=== PATIENT | female | born 1935 | race Caucasian/White ===

== ENCOUNTER 2017-02-02 08:48 | Day surgery (SDC) | payer OTHER ==
[2017-02-02] MEDS ORDERED: PROPOFOL 20 ML ONE ×2 (10:42)
[2017-02-02 11:03] VITALS: BMI 35.4
[2017-02-02] MEDS ORDERED: LIDOCAINE HCL 2% JELLY 10 ML CARTRIDGE ONE (11:33)
[2017-02-02 11:55] VITALS: TEMP 97.9
[2017-02-02] MEDS ORDERED: ACETAMINOPHEN 1000 MG/100 ML VIAL (NON FORMULARY) IVPB ONE (12:01)
[2017-02-02] MEDS ORDERED: traMADol HCL 50 MG TABLET PO ONE (12:03)
[2017-02-02 13:19] VITALS: BP 168/75; PULSE 54
--- NOTE | 2017-02-03 12:35 | PATH ---
Surgical Pathology Report Patient Name: [facility]. Rec. #: [id number] /Age/Gender: 1935 (Age: 81) / F Account: [id number] Location: U-ENDOSCOPY Taken: 02/02/2017 Received: 02/02/2017 Reported: 02/03/2017 Physicians: Nura Montiel M.D. Specimen(s) Received A: BX ANTRUM B: BX PROCTITIS Clinical History GERD, history of gastric ulcer, fourth degree hemorrhoids Erosive gastritis, hiatal hernia, grade 4 internal hemorrhoids, proctitis Final Diagnosis A. STOMACH, ANTRUM, BIOPSY: REACTIVE GASTROPATHY. IMMUNOSTAIN FOR H. PYLORI IS NEGATIVE. B. RECTUM, BIOPSY: COLONIC MUCOSA WITH FOCAL SUPERFICIAL ULCERATION. NO CARCINOMA OR ADENOMATOUS CHANGES IDENTIFIED. Electronically Signed Jj Webster M.D. Gross Description A. Received in formalin, labeled "biopsy antrum" is a farias, irregular portion of soft tissue measuring 0.3 cm. in greatest dimension. The specimen is submitted in toto in one cassette. B. Received in formalin, labeled "biopsy proctitis" is a farias, irregular portion of soft tissue measuring 0.3 cm. in greatest dimension. The specimen is submitted in toto in one cassette. 02/02/201702/02/2017
== END 2017-02-02 13:40 | disposition home or self-care (01) ==
LOC: JASU-ENDO 08:48
PROVIDERS: ATTEND Internal Medicine Gastroenterology
PROC: 0DBP8ZX Excision of Rectum, Via Natural or Artificial Opening Endoscopic, Diagnostic (ICD-10-PCS; 2017-02-02)
PROC: 0DB68ZX Excision of Stomach, Via Natural or Artificial Opening Endoscopic, Diagnostic (ICD-10-PCS; 2017-02-02)
PROC: 06LY4CC Occlusion of Hemorrhoidal Plexus with Extraluminal Device, Percutaneous Endoscopic Approach (ICD-10-PCS; principal; 2017-02-02 10:00)
DX: K64.3 Fourth degree hemorrhoids (principal); R23.3 Spontaneous ecchymoses; K29.71 Gastritis, unspecified, with bleeding; K44.9 Diaphragmatic hernia without obstruction or gangrene; Z87.11 Personal history of peptic ulcer disease
CPT/HCPCS: 88305-TC; 88342-TC

== ENCOUNTER 2017-03-11 09:01 | Inpatient (IN) | payer OTHER ==
[2017-03-11 09:10] VITALS: TEMP 97.8; BMI 35.4
[2017-03-11 09:46] LABS: BASOPHIL 1.1 % (0-2.0); EOSINOPHIL 1.2 % (0-4.5); MCH 28.4 pg (25.7-33.7); MCHC 32.9 g/dl (32.0-36.0); MEAN CELL VOLUME 86.3 fl (80-96); NEUTROPHILS 42.3 % (42.8-82.8); PLATELET COUNT 305 K/MM3 (134-434); WHITE BLOOD COUNT 14.4 K/mm3 (4.0-10.0)
--- NOTE | 2017-03-11 09:49 | PDOC ---
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 She states she was having the stress test because she had been complaining of dyspnea on exertion, intermittent chest pain, diaphoresis and irregular heart beat for 2 months. The patient denies any chest pain or lightheadedness this week. She states she feels comfortable at this time. She denies starting any new medications in the past 3 months. She denies shortness of breath, headache and dizziness. She denies fever, chills , nausea, vomit, diarrhea and constipation. She denies dysuria, frequency, urgency and hematuria. Allergies: NKDA PCP - Dr. Aden Clam Grower: Dr. Venegas Oncologist: Dr. Muller (Liyah Vazquez) Past History <Liyah Vazquez - Last Filed: 03/11/17 11:27> - Past Medical History Anemia: No Asthma: No Cancer: Yes (CHRONIC LEUKEMIA) Cardiac Disorders: Yes (CAD) CVA: No COPD: No CHF: No Dementia: No Diabetes: No GI Disorders: Yes (REFLUX,ESOPHAGITIS;GASTRIC ULCERS; DIVERTICULOSIS; H/H) Disorders: No HTN: Yes Hypercholesterolemia: Yes Liver Disease: No Seizures: No Thyroid Disease: No - Surgical History Abdominal Surgery: No Appendectomy: No Cardiac Surgery: No Cholecystectomy: Yes Lung Surgery: No Neurologic Surgery: No Orthopedic Surgery: Yes (LEFT TOTAL KNEE REPLACEMENT X2) - Immunization History Immunization Up to Date: Yes - Psycho/Social/Smoking Cessation Hx Anxiety: No Suicidal Ideation: No Smoking Status: No Smoking History: Never smoked Have you smoked in the past 12 months: No Number of Cigarettes Smoked Daily: 0 If you are a former smoker, when did you quit?: 1997 Hx Alcohol Use: No Drug/Substance Use Hx: No Substance Use Type: None Hx Substance Use Treatment: No <Geovany Burgess - Last Filed: 03/11/17 18:42> - Past Medical History Allergies/Adverse Reactions: Allergies Allergy/AdvReac Type Severity Reaction Status Date / Time codeine [Codeine] Allergy Mild itchiness Verified 03/11/17 09:09 morphine Allergy Verified 03/11/17 09:09 Home Medications: Ambulatory Orders Amlodipine Besylate/Benazepril [Lotrel 5-10 mg Capsule] 1 each PO DAILY Aspirin [ASA -] 162 mg PO BID 12/02/13 Isosorbide Mononitrate [Imdur] 120 mg PO DAILY 12/02/13 Metoprolol Tartrate [Lopressor -] 25 mg PO DAILY 12/02/13 Atorvastatin Ca [Lipitor] 20 mg PO HS 04/15/15 Cholecalciferol (Vitamin D3) [Vitamin D3] 2,000 unit PO DAILY 04/15/15 Sertraline HCl [Zoloft -] 25 mg PO DAILY 04/15/15 Guar Gum [Benefiber] 1 each PO BID #0 packet 09/28/15 Acetaminophen [Tylenol -] 500 mg PO Q4H PRN #100 tablet 02/02/17 Docusate Sodium [Colace -] 2 tab PO DAILY #30 capsule 02/02/17 Pantoprazole Sodium 40 mg PO DAILY 03/11/17 Cardiac Specific PMH - Complaint Specific PMHX Pacemaker: No <Geovany Burgess - Last Filed: 03/11/17 18:42> Review of Systems - Review of Systems Able to Perform ROS?: Yes <Liyah Vazquez - Last Filed: 03/11/17 11:27> <Geovany Burgess - Last Filed: 03/11/17 18:42> - Review of Systems Comments:: 03/11/17 11:27 CONSTITUTIONAL: No reported: Fever, Chills, Diaphoresis, Generalized Weakness, Malaise, Loss of Appetite HEENT: No reported: Rhinorrhea, Nasal Congestion, Throat Pain, Throat Swelling, Difficulty Swallowing, Mouth Swelling, Ear Pain, Eye Pain, Visual Changes CARDIOVASCULAR: (+) Irregular Heart Rate, No reported: Chest Pain, Syncope, Palpitations, Lightheadedness, Peripheral Edema RESPIRATORY: No reported: Cough, Shortness of Breath, SOB with Exertion, Orthopnea, Wheezing , Stridor, Hemoptysis GASTROINTESTINAL: No reported: Abdominal pain, Abdominal Distension, Nausea, Vomiting, Diarrhea, Constipation, Melena, Hematochezia GENITOURINARY: No reported: Dysuria, Frequency, Urgency, Hesitancy, Flank Pain, Genital Pain MUSCULOSKELETAL: No reported: Myalgia, Arthralgia, Joint Swelling, Back pain, Neck Pain SKIN: No reported: Rash, Itching, Pallor HEMEATOLOGIC/IMMUNOLOGIC: No reported: Easy Bleeding, Easy Bruising, Lymphadenopathy, Frequent infections ENDOCRINE: No reported: Unexplained Weight Gain, Unexplained Weight Loss, Heat Intolerance , Cold Intolerance NEUROLOGIC: No reported: Headache, Focal Weakness, Paresthesias, Vertigo, Lightheadedness, Unsteady Gait, Seizure, Mental Status Changes, Incontinence PSYCHIATRIC: No reported: Anxiety, Depression (Liyah Vazquez) *Physical Exam <Liyah Vazquez - Last Filed: 03/11/17 11:27> <Geovany Burgess - Last Filed: 03/11/17 18:42> - Vital Signs Last Vital Signs Temp Pulse Resp BP Pulse Ox 97.8 F 52 L 18 105/77 97 03/11/17 09:03 03/11/17 15:37 03/11/17 15:37 03/11/17 15:37 03/11/17 15:37 - Physical Exam Comments: 03/11/17 11:28 GENERAL: The patient is awake, alert, and fully oriented, Nontoxic - in no acute distress. HEAD: Normocephalic, atraumatic. EYES: extraocular movements intact, sclera anicteric, conjunctiva clear. ENT: Normal voice, Moist mucous membranes. NECK: Normal range of motion, supple LUNGS: Breath sounds equal, clear to auscultation bilaterally. No wheezes, no rhonchi, no rales. HEART: (+) bradycardic, regular, without murmur, rub or gallop. ABDOMEN: Soft, nontender, normoactive bowel sounds. No guarding, no rebound.No CVA tenderness EXTREMITIES: Normal range of motion, no edema. No clubbing or cyanosis. No cords, erythema, or tenderness. NEUROLOGICAL: No facial assymetry, Normal speech, PSYCH: Normal mood, normal affect. SKIN: Warm, Dry, normal turgor, (Liyah Vazquez) Heart Score/ECG Review <Liyah Vazquez - Last Filed: 03/11/17 11:27> <Geovany Burgess - Last Filed: 03/11/17 18:42> - ECG Impressions Comment:: 03/11/17 10:13 Twelve-lead EKG was performed and reviewed by me. Rate of 40 Junctional bradycardia TWI in lateral leasd previous ekg dated 01/13/17 shows sinus bradycardia without TWI 03/11/17 18:10 Twelve-lead EKG was performed and reviewed by me. EKG performed 15:21 There is normal sinus rhythm with a rate of 52 Left axis deviation When compared with prior EKG junctional bradycardia has resolved. (Geovany Burgess) ED Treatment Course - LABORATORY CBC & Chemistry Diagram: 03/11/17 09:21 03/11/17 09:21 <Liyah Vazquez - Last Filed: 03/11/17 11:27> - LABORATORY CBC & Chemistry Diagram: 03/11/17 09:21 03/11/17 09:21 <Geovany Burgess - Last Filed: 03/11/17 18:42> - ADDITIONAL ORDERS Additional order review: Laboratory Results 03/11/17 09:21 Sodium 138 Potassium 4.9 D Chloride 107 Carbon Dioxide 22 Anion Gap 9 BUN 24 H D Creatinine 1.0 D Creat Clearance w eGFR 53.08 Random Glucose 115 H Calcium 9.0 Magnesium 2.5 H D Total Bilirubin 0.6 AST 20 ALT 19 D Alkaline Phosphatase 100 Creatine Kinase 62 Troponin I < 0.02 Total Protein 6.5 Albumin 3.8 TSH 0.87 03/11/17 09:21 RBC 4.89 MCV 86.3 MCHC 32.9 RDW 14.0 MPV 8.0 Neutrophils % 42.3 L Lymphocytes % 47.9 H Monocytes % 7.5 Eosinophils % 1.2 Basophils % 1.1 D - RADIOLOGY Radiology Studies Ordered: Category Date Time Status CHEST X-RAY PORTABLE* [RAD] Stat Radiology 03/11/17 09:15 Completed Radiograph Interpretation: 03/11/17 10:26 CXR was read by Dr. Mancuso at 10:04 Impression: No acute pathology. (MoreLiyah [email or web address]) Medical Decision Making <Liyah Vazquez - Last Filed: 03/11/17 11:27> <Geovany Burgess - Last Filed: 03/11/17 18:42> - Medical Decision Making 03/11/17 10:24 Clam Grower, Dr. Venegas, is at bedside with patient at this time (Liyah Vazquez) 03/11/17 09:46 81y F hx of CAD, HTN, HL, sent from cardiology for evaluation of bradycardia - pt has been having NARAYANAN/sob, intermittent CP (last episode 1 week + ago), noted to be bradycardic to 35 for her outpateint stress test, EKG was junctional bradycardia. pts BP wnl here and pt is otherwise asymptomatic. pt on monitor with pacer pads on stand by will obtain lab work to r/o metabolic, endocrine cause, acs will d/w dr. luther regarding possible PM placement A portion of this note was documented by scribe services under my direction. I have reviewed the details of the note, within reason, and agree with the documentation with the following case summary and management plan written by me 03/11/17 10:59 labs reviewed and are unremarkable case discussed with dr. Nieto and dr. arteaga will admit to icu will d/c betablockers (although she is only on a minimal dose) to see if there is any improvement, if not will need PM placement Case discussed in detail with admitting physician including history, physical exam and ancillary studies. Admitting physician has assumed care for the patient, will follow all pending diagnostics and will complete the evaluation and treatment. CRITICAL CARE DOCUMENTATION: I spent ~35 minutes of Critical Care time, excluding separately billable procedures, involving high complexity decision making to assess, manipulate and support vital system function(s) to treat single or multiple vital organ system failure and/or to prevent further life threatening deterioration of the patient' s condition. 03/11/17 11:[address] christy accepted to ICU 03/11/17 14:31 [address] further discussion with dr. venegas - requests stransfer to [facility] for PM implantation rather than admission. pt will be transferred to Dr. Foster care at [facility] The patient was seen and examined to determine medical stability. The patient is MEDICALLY STABLE at this time. Labs, EKG, radiological studies were ordered to expedite the patient's care. I certify that I have discussed with the patient and/or his in store representative the following risks and benefits of the proposed transfer. Risks include worsening of patients condition during transport,auto accident, or permanent disability. Benefits include receiving specialized care not available at this facility. I certify that, based on the information available at this time, the medical benefits reasonably expected from the provision of appropriate medical treatment at the receiving facility outweigh the increased risk to the patient. I believe the patient/relative/guardian understands what I have explained and answered. The patient will be transferred to the service of Dr. Eubanks at [facility] 03/11/17 14:45 pts HR improved to the 50s, appears to be sinus on repeat ekg pt asypmtmatic otherwise bp normal awating bed at [facility] for transfer (Geovany Burgess) *DC/Admit/Observation/Transfer <Liyah Vazquez - Last Filed: 03/11/17 11:27> - Discharge Dispostion Admit: No - Transfer to Acute Care Facility Receiving Facility: [facility] Accepting Physician:: Dr. Eubanks <Geovany Burgess - Last Filed: 03/11/17 18:42> Diagnosis at time of Disposition: Junctional bradycardia, NARAYANAN (dyspnea on exertion), Sick sinus syndrome - Discharge Dispostion Disposition: TRANSFER ACUTE CARE/OTHER HOSP Condition at time of disposition: Guarded - Referrals - Patient Instructions - Attestations Scribe Attestion: 03/11/17 10:27 Documentation prepared by Liyah Vazquez, acting as medical translator for Geovany Burgess MD, (Liyah Vazquez)
[2017-03-11 10:11] LABS: ALBUMIN 3.8 g/dl (3.4-5.0); ANION GAP 9 (8-16); BILIRUBIN,TOTAL 0.6 mg/dL (0.2-1.0); CO2 22 mmol/L (21-32); COCKROFT - GAULT 62.1095; GLUCOSE,RANDOM 115 mg/dL (74-106); MAGNESIUM 2.5 mg/dL (1.8-2.4); SGOT/AST 20 U/L (15-37); SGPT/ALT 19 U/L (12-78); TOT PROT 6.5 g/dl (6.4-8.2)
[2017-03-11 10:20] LABS: ALK PHOS 100 U/L (45-117); THYROID STIMULATING HORMONE 0.87 uIU/ml (0.358-3.74); TROPONIN I < 0.02 ng/ml (0.00-0.05)
[2017-03-11 11:53] LABS: URINE APPEARANCE CLEAR; URINE BILIRUBIN NEGATIVE (NEGATIVE); URINE BLOOD NEGATIVE (NEGATIVE); URINE COLOR LTYELLOW; URINE GLUCOSE (UA) NEGATIVE (NEGATIVE); URINE KETONE NEGATIVE (NEGATIVE); URINE NITRITE NEGATIVE (NEGATIVE); URINE PROTEIN NEGATIVE (NEGATIVE); URINE UROBILINOGEN NEGATIVE E.U./dl (0.2-1.0)
[2017-03-11 12:00] LABS: URINE LEUK ESTERASE 2+ (NEGATIVE)
[2017-03-11 12:02] LABS: URINE BACTERIA MODERATE /hpf (NONE SEEN); URINE RBC 1 /hpf (0-3); URINE WBC 106 /hpf (3-5)
--- NOTE | 2017-03-11 12:09 | CON.CARD ---
Consult - History of Present Illness History of Present Illness: Chief Complaint: 1. Fatigue 2. Shortness of breath on minimal activity 3. Chest discomfort 81 year old Cynthia female, with history of hypertension, hypertensive cardiovascular disease, coronary artery disease, angina pectoris, chronic lymphocytic leukemia, hypercholesterolemia, benign postural vertigo, history of depression, gastroesophageal reflux disease, s/p upper GI bleeding. History of diverticulosis and rheumatic fever as a child. Patient had been complain of dyspnea dating back to January of this year, initial episode occurred after taking a shower and drying herself and became severely dyspnic, which lasted a few minutes. She also experienced dyspnea while exercising on a stationary bike, she denied having PND or orthopnea. Patient periodically had retrosternal pressure like chest discomfort associated with shortness of breath. Rarely discomforted radiated to the left upper extremity. Patient was scheduled to undergo a pharmacological myoview stress test today and was found to be in a junctional rhythm at 32 bpm with VA conduction. On questioning patient states that she was experiencing profound fatigue for the last several days and had one episode of retrosternal chest discomfort 1 week ago while she was laying in bed, promptly relieved by sub lingual nitroglycerine. In view of the electrocardiographic findings she was sent to the emergency room for further evaluation. No history of presyncope or syncope, no palpitations, no history of cough or expectoration. No history of diabetes mellitus, intolerance to cold or warm weather. Past History: 1. As mentioned in the history of present illness. 2. Arthritis involving the left knee. 3. Vitamin D deficiency. 4. History of osteoporosis. Surgical history: 1. S/P left knee replacement. 2. S/P hysterectomy. 3. S/P cholecystectomy 4. 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 She is , has 4 sons and 1 daughter. One of the sons who was in the army was accidentally shot. All other children are healthy. Non smoker, recreational smoker in her teenage years , has a social drink and 2-3 cups of regular coffee per day. No su. Family history: Father at age 85 related to complications of hypertension and "Heart disease". Mother at age 63, related to cerebral vascular accident, she was hypertensive. She had 7 sisters and 2 brothers, 2 of the sisters are diseased related to carcinoma. One sister related to an accident. A brother has dementia and one of the sisters has arthritis and is disabled. Allergies: 1. Codeine (pruritis) 2. Morphine (difficulty breathing) 3. Seasonal allergies Home Medication List Medication Instructions Recorded Confirmed Type Amlodipine Besylate/Benazepril 1 each PO DAILY 12/02/13 03/11/17 History [Lotrel 5-10 mg Capsule] Aspirin [ASA -] 162 mg PO BID 12/02/13 03/11/17 History Isosorbide Mononitrate [Imdur] 120 mg PO DAILY 12/02/13 03/11/17 History Metoprolol Tartrate [Lopressor -] 25 mg PO DAILY 12/02/13 03/11/17 History Atorvastatin Ca [Lipitor] 20 mg PO HS 04/15/15 03/11/17 History Cholecalciferol (Vitamin D3) 2,000 unit PO DAILY 04/15/15 03/11/17 History [Vitamin D3] Sertraline HCl [Zoloft -] 25 mg PO DAILY 04/15/15 03/11/17 History Pantoprazole Sodium 40 mg PO DAILY 03/11/17 03/11/17 History Nitroglycerine 0.4 mg PRN Renexa (Discontinued AMA) 500 mg Zometa IV once a year Fluticasone nasal spray 2 sprays in each nostril on a PRN basis Review of Systems: Constitutional: No history of chills, fever or night sweats. No history of unintentional weight loss. HEENT: No history of headaches, diplopia, blurred vision. No history of epistaxis or hoarsness. No tinnitus. History of bilateral deafness. Cardiovascular: See history of present illness. Respiratory: See history of present illness. No history of cough, expectoration or hemoptysis. No history of tuberculosis. GI: No history of nausea, vomiting, melena, or hematemesis. No history of abdominal pain or discomfort, no change in bowel habits reported. See history of present illness. SENIOR PROCESS ENGINEER: No history of seizures, or syncope, one episode of lightheadedness lasting 30 seconds night prior to admission. No history of focal weakness. Endocrine: No history of polyuria or polydipsia. No history of intolerance to cold or warm weather. Musculoskeletal: History of arthrilgias, no history of myalgia. : Recent history of dysuria (spontaneous resolution). No history of frequency or hematuria. HEME: No history of bleeding, anemia or ecchymosis. History of CLL. O: 81 year old female was in no acute distress, no pallor, cyanosis, clubbing, or jaundice. Vital Signs: Weight 200 pounds. Blood pressure 126/59. Pulse 38. Height 62 inches. BMI 38 Neck: Supple, no JVD, negative HJR, carotids were equal and upstrokes were normal, no thyromegaly appreciated. Heart: PMI was in the 5th intercostal space, no heaves or thrills, S1 and S2 were normal. Nonejection systolic click heard along the left sternal border. No gallops were appreciated. Lungs: Clear on auscultation bilaterally. Abdomen: Soft, protuberant, nontender, no hepatosplenomegaly appreciated, and no palpable masses were felt. Bowel sounds were active, no bruits were heard. Extremities: No calf tenderness or dependent edema. Pulses are normal, except posterior tibial pulses could not be palpated. ECG: Junctional escape rhythm with VA conduction. Previous ECG is not available. Lab Data: Laboratory Results - last 24 hr 03/11/17 03/11/17 03/11/17 09:21 09:21 11:37 WBC 14.4 H D RBC 4.89 Hgb 13.9 Hct 42.2 MCV 86.3 MCHC 32.9 RDW 14.0 Plt Count 305 MPV 8.0 Neutrophils % 42.3 L Lymphocytes % 47.9 H Monocytes % 7.5 Eosinophils % 1.2 Basophils % 1.1 D Sodium 138 Potassium 4.9 D Chloride 107 Carbon Dioxide 22 Anion Gap 9 BUN 24 H D Creatinine 1.0 D Creat Clearance w eGFR 53.08 Random Glucose 115 H Calcium 9.0 Magnesium 2.5 H D Total Bilirubin 0.6 AST 20 ALT 19 D Alkaline Phosphatase 100 Creatine Kinase 62 Troponin I < 0.02 Total Protein 6.5 Albumin 3.8 TSH 0.87 Urine Color Ltyellow Urine Appearance Clear Urine pH 6.0 Urine Protein Negative Urine Glucose (UA) Negative Urine Ketones Negative Urine Blood Negative Urine Nitrite Negative Urine Bilirubin Negative Urine Urobilinogen Negative Ur Leukocyte Esterase 2+ H Urine RBC 1 Urine WBC 106 Ur Epithelial Cells Rare Urine Bacteria Moderate A: 1. Profound fatigue, junctional escape rhythm, dyspnea and intermittent chest pain, etiology; a. Secondary to sick sinus syndrome b. Advanced AV block 2. Coronary artery disease, angina pectoris. 3. Hypertension, hypertensive cardiovascular disease presently normotensive. 4. Chronic lymphocytic leukemia. 5. Dyslipidemia type IIB. 6. History of depression, currently in remission. 7. S/P upper GI bleed. 8. History of vitamin D deficiency. 9. Osteoporosis. 10. Bilateral deafness. 11. Exogenous obesity. Recommendation: 1. Patient will require permanent pacemaker and case was discussed with PCP, ER physician and hospitalist. The PCP is affiliated with [facility] and fibre cement moulder is being contacted. 2. Stand by external pacemaker. 3. Patient will need further evaluation regarding chest pain. 4. Hold Toprol. 5. Continue all other cardiac / hypertensive medications. 6. Discussed with patient, and daughter regarding patients condition and options. All are in agreement that she is transferred to the above tertiary care center. EP physician is being contacted. Prognosis: Guarded. Attestation: Documentation prepared by Fernando Arenas, acting as medical assistant supervisor for Ilir Venegas MD. <Fernando Arenas - Last Filed: 03/11/17 13:11> - Smoking History Aproximately how many cigarettes per day: 0 If you are a former smoker, when did you quit?: 1997 <Ilir Venegas - Last Filed: 03/11/17 13:12> Home Medications <Fernando Arenas - Last Filed: 03/11/17 13:11> <Ilir Venegas - Last Filed: 03/11/17 13:12> - Allergies Allergies/Adverse Reactions: Allergies Allergy/AdvReac Type Severity Reaction Status Date / Time codeine [Codeine] Allergy Mild itchiness Verified 03/11/17 09:09 morphine Allergy Verified 03/11/17 09:09 - Home Medications Home Medications: Ambulatory Orders Amlodipine Besylate/Benazepril [Lotrel 5-10 mg Capsule] 1 each PO DAILY Aspirin [ASA -] 162 mg PO BID 12/02/13 Isosorbide Mononitrate [Imdur] 120 mg PO DAILY 12/02/13 Metoprolol Tartrate [Lopressor -] 25 mg PO DAILY 12/02/13 Atorvastatin Ca [Lipitor] 20 mg PO HS 04/15/15 Cholecalciferol (Vitamin D3) [Vitamin D3] 2,000 unit PO DAILY 04/15/15 Sertraline HCl [Zoloft -] 25 mg PO DAILY 04/15/15 Guar Gum [Benefiber] 1 each PO BID #0 packet 09/28/15 Acetaminophen [Tylenol -] 500 mg PO Q4H PRN #100 tablet 02/02/17 Docusate Sodium [Colace -] 2 tab PO DAILY #30 capsule 02/02/17 Pantoprazole Sodium 40 mg PO DAILY 03/11/17 Vital Signs: Vital Signs Temperature 97.8 F 03/11/17 09:03 Pulse Rate 38 L 03/11/17 11:31 Respiratory Rate 20 03/11/17 11:31 Blood Pressure 126/59 03/11/17 11:31 O2 Sat by Pulse Oximetry (%) 98 03/11/17 11:31 <Fernando Arenas - Last Filed: 03/11/17 13:11> Vital Signs: Vital Signs Temperature 97.8 F 03/11/17 09:03 Pulse Rate 38 L 03/11/17 11:31 Respiratory Rate 20 03/11/17 11:31 Blood Pressure 126/59 03/11/17 11:31 O2 Sat by Pulse Oximetry (%) 98 03/11/17 11:31 <Ilir Venegas - Last Filed: 03/11/17 13:12>
[2017-03-11 19:45] LABS: TROPONIN I < 0.02 ng/ml (0.00-0.05)
[2017-03-11 21:14] VITALS: BP 135/57; PULSE 56
[2017-03-11] MEDS ORDERED: ATORVASTATIN CA 20 MG TABLET (FP) PO SCH (22:00)
[2017-03-11] MEDS ORDERED: ASPIRIN 81 MG CHEWABLE TABLETS PO SCH (22:00)
[2017-03-12] MEDS ORDERED: PATIENT'S OWN MEDICATION (NON-FORMULARY) (Isosorbide Mononitrate [Imdur] 120 MG) PO SCH (10:00)
[2017-03-12] MEDS ORDERED: METOPROLOL TARTRATE 25 MG TABLET (FP) PO SCH (10:00)
[2017-03-12] MEDS ORDERED: PANTOPRAZOLE 40 MG TABLET (FP) PO SCH (10:00)
[2017-03-12] MEDS ORDERED: amLODIPine BESYLATE 5 MG TABLET (FP) PO SCH (10:00)
[2017-03-12] MEDS ORDERED: SERTRALINE HCL 25 MG TABLET (FP) PO SCH (10:00)
--- NOTE | 2017-03-12 16:29 | EKG ---
Test Reason : Blood Pressure : / mmHG Vent. Rate : 052 BPM Atrial Rate : 052 BPM P-R Int : 196 ms QRS Dur : 094 ms QT Int : 464 ms P-R-T Axes : 013 -41 003 degrees QTc Int : 431 ms POOR DATA QUALITY, INTERPRETATION MAY BE ADVERSELY AFFECTED SINUS BRADYCARDIA LEFT AXIS DEVIATION MINIMAL VOLTAGE CRITERIA FOR LVH, MAY BE NORMAL VARIANT POSSIBLE ANTERIOR INFARCT (CITED ON OR BEFORE 11-MAR-2017) ABNORMAL ECG WHEN COMPARED WITH ECG OF 11-MAR-2017 09:09, SINUS RHYTHM HAS REPLACED JUNCTIONAL RHYTHM QT HAS LENGTHENED Confirmed by CARMELO BLANCA MD ([id number]) on 03/12/2017 4:29:00 PM Referred By: Confirmed By:CARMELO BLANCA MD
--- NOTE | 2017-03-12 16:35 | EKG ---
Test Reason : Blood Pressure : / mmHG Vent. Rate : 040 BPM Atrial Rate : 048 BPM P-R Int : 000 ms QRS Dur : 082 ms QT Int : 262 ms P-R-T Axes : 000 -32 000 degrees QTc Int : 213 ms POOR DATA QUALITY, INTERPRETATION MAY BE ADVERSELY AFFECTED JUNCTIONAL BRADYCARDIA LEFT AXIS DEVIATION POSSIBLE ANTERIOR INFARCT , AGE UNDETERMINED ABNORMAL ECG WHEN COMPARED WITH ECG OF 15-APR-2015 06:30, SIGNIFICANT CHANGES HAVE OCCURRED Confirmed by RIANNA MUSE, CARMELO ([id number]) on 03/12/2017 4:34:54 PM Referred By: Confirmed By:CARMELO BLANCA MD
== END 2017-03-11 22:17 | disposition short-term general hospital (02) | DRG 309 ==
LOC: JER 09:01 → JERBED 11:08
PROVIDERS: ADMIT Internal Medicine; ATTEND Internal Medicine
DX: I49.5 Sick sinus syndrome (principal); C91.10 Chronic lymphocytic leukemia of B-cell type not having achieved remission; E78.5 Hyperlipidemia, unspecified; K57.90 Diverticulosis of intestine, part unspecified, without perforation or abscess without bleeding; K52.89 Other specified noninfective gastroenteritis and colitis; K21.9 Gastro-esophageal reflux disease without esophagitis; K25.9 Gastric ulcer, unspecified as acute or chronic, without hemorrhage or perforation; I49.9 Cardiac arrhythmia, unspecified; H81.10 Benign paroxysmal vertigo, unspecified ear; F32.9 Major depressive disorder, single episode, unspecified; I25.118 Atherosclerotic heart disease of native coronary artery with other forms of angina pectoris; M13.862 Other specified arthritis, left knee; E55.9 Vitamin D deficiency, unspecified; M81.0 Age-related osteoporosis without current pathological fracture; I44.39 Other atrioventricular block; I11.9 Hypertensive heart disease without heart failure; E66.09 Other obesity due to excess calories; Z68.35 Body mass index [BMI] 35.0-35.9, adult; Z96.652 Presence of left artificial knee joint
CPT/HCPCS: 36415; 71010-TC; 80053; 81003; 81015; 82550; 83735; 84443; 84484; 85025; 93005; 93010; 99285-25

== ENCOUNTER 2017-05-15 14:51 | Emergency (ER) | payer OTHER ==
[2017-05-15 14:58] VITALS: TEMP 97.6; BMI 36.6
--- NOTE | 2017-05-15 15:50 | PDOC ---
Attending Attestation - Resident Resident Name: Ant Lomax - ED Attending Attestation I have performed the following: I have examined & evaluated the patient, The case was reviewed & discussed with the resident, I agree w/resident's findings & plan, Exceptions are as noted - HPI HPI: 05/15/17 15:46 81-year-old female with past medical history of CLL, coronary disease, angina, hypertension, hyperlipidemia, depression, junctional rhythm presents with bradycardia, chest pain or shortness of breath for last several days. In february, March of this year, patient was sent to [facility] and was evaluated for pacemaker. At that time, patient had a cardiac catheterization and had stents placed. In last so days, patient's been endorsing chest tightness and shortness of breath dyspnea on exertion and general weakness and fatigue. Patient's patient was noted to have a heart rate in the 40s and the patient was at the ER by Dr. Venegas - Physicial Exam PE: 05/15/17 15:49 GENERAL: Awake, alert, and fully oriented, in no acute distress. HEAD: No signs of trauma EYES: PERRLA, EOMI, sclera anicteric, conjunctiva clear ENT: Auricles normal inspection, hearing grossly normal, nares patent, oropharynx clear without exudates. NECK: Normal ROM, supple, no lymphadenopathy, JVD, or masses LUNGS: Breath sounds equal, clear to auscultation bilaterally. No wheezes, and no crackles HEART: Bradycardic. Regular rate and rhythm, normal S1 and S2, no murmurs, rubs or gallops ABDOMEN: Soft, nontender, normoactive bowel sounds. No guarding, no rebound. No masses EXTREMITIES: Normal range of motion, no edema. No clubbing or cyanosis. No cords, erythema, or tenderness NEUROLOGICAL: Cranial nerves II through XII grossly intact. Normal speech, normal gait SKIN: Warm, Dry, normal turgor, no rashes or lesions noted. - Medical Decision Making 05/15/17 15:51 Vital Signs Temp Pulse Resp BP Pulse Ox 97.6 F 48 L 19 153/84 95 05/15/17 14:53 05/15/17 14:53 05/15/17 14:53 05/15/17 14:53 05/15/17 14:53 Pads on patient. Atropine PRN if symptomatic or hypotensive. Labs including troponin, BNP Chest xray. court monitor Pt to be admitted for bradycardia. Differential includes metabolic disarray, [place], thyroid disorder, sick sinus syndrome, junctional rhythm 05/15/17 16:[address] López from [facility] (athletic events scorer) and Dr. Venegas. Pt accepted for transfer to [facility] <Lavon Caban - Last Filed: 05/15/17 16:05> Discharge Disposition <Lavon Caban - Last Filed: 05/15/17 16:05> - Discharge Dispostion Last Admission D/C Date: 03/11/17 - Transfer to Acute Care Facility Receiving Facility: [facility] (Transfer [facility]) <Nura Horvath - Last Filed: 05/15/17 20:04> - Diagnosis Atrioventricular junctional rhythm, Bradycardia - Discharge Dispostion Disposition: TRANSFER ACUTE CARE/OTHER HOSP Condition at time of disposition: Improved - Referrals Referrals: Cecil Calero MD [Primary Care Provider] - - Patient Instructions - Post Discharge Activity Heart Score/ECG Review #1 ECG reviewed & interpreted by me at: 15:45 05/15/17 15:50 Junctional bradycardia 42, left axis deviation, TWI V3-V6, no std/leilani, QTC 412 msec <Lavon Caban - Last Filed: 05/15/17 16:05>
--- NOTE | 2017-05-15 16:12 | PDOC ---
History of Present Illness - General Chief Complaint: Chest Pain Stated Complaint: CHEST DISCOMFORT (PCP SENT) Time Seen by Provider: 05/15/17 15:01 - History of Present Illness Initial Comments: 05/15/17 16:06 Patient is an 81 year old female with a history of CAD s/p stenting, HTN, HLD, CLL who presents with chest pressure. The patient reports a 2 days history of chest pressure and a fluttering in her chest with associated SOB and fatigue. She was being evaluated by her beer coil cleaner Dr. Sams in the office today and was found to be bradycardic on EKG and sent to the ED for evaluation. Of note, she had a similar presentation 03/11/17 where she presented with similar symptoms found to have bradycardia to 35. At that time, she was transferred to [facility] for pacemaker evaluation. She underwent a stress test and her heart rate increased so the pacemaker was not placed and she underwent cardiac cath where she had stents placed on 03/12/2017. She denies any fevers, chills, abdominal pain, or changes with bowel movements or urination. Past History - Past Medical History Allergies/Adverse Reactions: Allergies Allergy/AdvReac Type Severity Reaction Status Date / Time codeine [Codeine] Allergy Mild itchiness Verified 05/15/17 14:53 morphine Allergy Verified 05/15/17 14:53 Home Medications: Ambulatory Orders Amlodipine Besylate/Benazepril [Lotrel 5-10 mg Capsule] 1 each PO DAILY Aspirin [ASA -] 162 mg PO BID 12/02/13 Isosorbide Mononitrate [Imdur] 120 mg PO DAILY 12/02/13 Atorvastatin Ca [Lipitor] 20 mg PO HS 04/15/15 Cholecalciferol (Vitamin D3) [Vitamin D3] 2,000 unit PO DAILY 04/15/15 Sertraline HCl [Zoloft -] 25 mg PO DAILY 04/15/15 Guar Gum [Benefiber] 1 each PO BID #0 packet 09/28/15 Acetaminophen [Tylenol -] 500 mg PO Q4H PRN #100 tablet 02/02/17 Docusate Sodium [Colace -] 2 tab PO DAILY #30 capsule 02/02/17 Anemia: No Asthma: No Cancer: Yes (CHRONIC LEUKEMIA) Cardiac Disorders: Yes (CAD,STENTS) CVA: No COPD: No CHF: No Dementia: No Diabetes: No GI Disorders: Yes (REFLUX,ESOPHAGITIS;GASTRIC ULCERS; DIVERTICULOSIS; H/H) Disorders: No HTN: Yes Hypercholesterolemia: Yes Liver Disease: No Seizures: No Thyroid Disease: No - Surgical History Abdominal Surgery: No Appendectomy: No Cardiac Surgery: Yes (STENTS) Cholecystectomy: Yes Lung Surgery: No Neurologic Surgery: No Orthopedic Surgery: Yes (LEFT TOTAL KNEE REPLACEMENT X2) - Immunization History Immunization Up to Date: Yes - Psycho/Social/Smoking Cessation Hx Anxiety: No Suicidal Ideation: No Smoking Status: No Smoking History: Never smoked Have you smoked in the past 12 months: No Number of Cigarettes Smoked Daily: 0 If you are a former smoker, when did you quit?: 1997 Hx Alcohol Use: No Drug/Substance Use Hx: No Substance Use Type: None Hx Substance Use Treatment: No Review of Systems - Review of Systems Constitutional: No: Chills, Fever HEENTM: No: Recent change in vision Respiratory: Yes: Shortness of Breath. No: Cough Cardiac (ROS): Yes: Chest Pain, Palpitations, Chest Tightness. No: Lightheadedness ABD/GI: No: Constipated, Diarrhea, Nausea, Vomiting : No: Dysuria Integumentary: No: Rash Neurological: No: Headache, Numbness, Tingling, Weakness *Physical Exam - Vital Signs Last Vital Signs Temp Pulse Resp BP Pulse Ox 97.6 F 48 L 19 153/84 95 05/15/17 14:53 05/15/17 14:53 05/15/17 14:53 05/15/17 14:53 05/15/17 14:53 - Physical Exam Comments: 05/15/17 16:15 General Appearance: Nourished. No Apparent Distress HEENT: No Pharyngeal Erythema, Tonsillar Exudate, Tonsillar Erythema Respiratory/Chest: Lungs Clear, Normal Breath Sounds. No Crackles, Rales, Rhonchi, Wheezing Cardiovascular: Regular Rhythm, Regular Rate, 2/6 systolic murmur. No Gallop/S3 , Gallop/S4 Gastrointestinal/Abdominal: Normal Bowel Sounds, Soft. No Guarding, Rebound, Tenderness Extremity: Normal Capillary Refill Integumentary: Normal Color, Dry, Warm Neurologic: Fully Oriented, Alert, Normal Mood/Affect, Normal Response ED Treatment Course - LABORATORY CBC & Chemistry Diagram: 05/15/17 15:42 08/04/17 15:42 - RADIOLOGY Radiology Studies Ordered: Category Date Time Status CHEST X-RAY PORTABLE* [RAD] Stat Radiology 05/15/17 15:40 Ordered Medical Decision Making - Medical Decision Making 05/15/17 17:07 Patient is a 81 year old female who presents with bradycardia and chest pressure. Differential includes but is not limited to: ACS, Thyroid, Arrythmia , Metabolic. Given the patient's previous presentation for similar complaints on 03/11, it is possible the patient may be experiencing ACS. However her current EKG demonstrates a junctional bradycardia and she may require a pacemaker. Given her symptoms of chest pressure and SOB, we will work her up with a cbc, cmp, bnp, mag, phos, TSH and chest radiograph to evaluate for other etiologies. 05/15/17 17:13 The case was discussed with the patient's beer coil cleaner Dr. Sams and the patient has already been accepted for transfer to [facility] by Dr. López. We will call Dr. López once all our lab tests of resulted. 05/15/17 17:21 CBC remarkable for an elevated WBC to 11.7. CMP, bnp, mag, phos, tsh are all unremarkable. Chest radiograph demonstrates mild cardiomegaly as read by our radiologist. Discussed the lab results with Dr. Lpóez and transport has been arranged for the patient. *DC/Admit/Observation/Transfer Diagnosis at time of Disposition: Junctional rhythm, Bradycardia - Discharge Dispostion Disposition: TRANSFER ACUTE CARE/OTHER HOSP Condition at time of disposition: Improved - Referrals Referrals: Cecil Calero MD [Primary Care Provider] - - Transfer to Acute Care Facility Receiving Facility: [facility] Accepting Physician:: Dr. López - Attestations Physician Attestion: 05/17/17 08:43 I, Dr. Ant Lomax, attest that this document has been prepared under my direction and personally reviewed by me in its entirety. I further attest, that it accurately reflects all work, treatment, procedures and medical decision -making performed by me.
[2017-05-15 16:23] LABS: BASOPHIL 0.2 % (0-2.0); EOSINOPHIL 0.8 % (0-4.5); MCHC 32.9 g/dl (32.0-36.0); MEAN CELL VOLUME 84.9 fl (80-96); MEAN PLT VOLUME 8.5 fl (7.5-11.1); NEUTROPHILS 45.2 % (42.8-82.8); PLATELET COUNT 304 K/MM3 (134-434); RDW 13.4 % (11.6-15.6); WHITE BLOOD COUNT 11.7 K/mm3 (4.0-10.0)
[2017-05-15 16:34] LABS: INR 0.95 (0.82-1.09); PROTHROMBIN TIME (PATIENT) 10.4 SEC (9.98-11.88)
[2017-05-15 16:37] LABS: ACTIVATED PTT 30.5 SECONDS (26.9-34.4)
[2017-05-15 16:53] LABS: ALBUMIN 3.7 g/dl (3.4-5.0); ANION GAP 7 (8-16); BILIRUBIN,TOTAL 0.4 mg/dL (0.2-1.0); CALCIUM 9.2 mg/dL (8.5-10.1); CO2 26 mmol/L (21-32); CREATININE 0.9 mg/dL (0.55-1.02); GLUCOSE,RANDOM 87 mg/dL (74-106); SGOT/AST 17 U/L (15-37); SGPT/ALT 20 U/L (12-78); TOT PROT 6.7 g/dl (6.4-8.2)
[2017-05-15 16:54] LABS: MAGNESIUM 2.5 mg/dL (1.8-2.4); PHOSPHOROUS 4.8 mg/dL (2.5-4.9)
[2017-05-15 16:55] LABS: ALK PHOS 87 U/L (45-117); CPK 64 IU/L (26-192); TROPONIN I < 0.02 ng/ml (0.00-0.05)
[2017-05-15 17:02] LABS: THYROID STIMULATING HORMONE 0.9 uIU/ml (0.358-3.74)
[2017-05-15 19:46] VITALS: BP 150/77; PULSE 62
--- NOTE | 2017-05-18 14:05 | EKG ---
Test Reason : Blood Pressure : / mmHG Vent. Rate : 042 BPM Atrial Rate : 041 BPM P-R Int : 000 ms QRS Dur : 084 ms QT Int : 494 ms P-R-T Axes : 000 -34 -44 degrees QTc Int : 412 ms INITIALLY SINUS BRADYCARDIA PERIOD OF AV DISSOCIATION WITH JUNCTIONAL ESCAPE RHYTHM LEFT AXIS DEVIATION POSSIBLE ANTERIOR INFARCT (CITED ON OR BEFORE 11-MAR-2017) ABNORMAL ECG WHEN COMPARED WITH ECG OF 11-MAR-2017 15:21, JUNCTIONAL ESCAPE RHYTHM IS SEEN T WAVE INVERSION NOW EVIDENT IN INFERIOR LEADS T WAVE VARIATION CLINICAL CORRELATION IS RECOMMENDED Confirmed by DAWSON MUSE, BIANCA ([id number]) on 05/18/2017 2:04:42 PM Referred By: Confirmed By:BIANCA OSMAN MD
== END 2017-05-15 20:08 | disposition short-term general hospital (02) ==
LOC: JER 14:51
DX: I49.8 Other specified cardiac arrhythmias (principal); I10 Essential (primary) hypertension; I25.10 Atherosclerotic heart disease of native coronary artery without angina pectoris; E78.5 Hyperlipidemia, unspecified; C91.10 Chronic lymphocytic leukemia of B-cell type not having achieved remission; K21.9 Gastro-esophageal reflux disease without esophagitis; Z88.5 Allergy status to narcotic agent; Z88.6 Allergy status to analgesic agent; Z96.652 Presence of left artificial knee joint; Z95.5 Presence of coronary angioplasty implant and graft; Z79.82 Long term (current) use of aspirin
CPT/HCPCS: 36415; 71010-TC; 80053; 83735; 83880; 84100; 84443; 84484; 85025; 85610; 85730; 93005; 93010; 99285-25

== ENCOUNTER 2017-08-31 15:35 | Emergency (ER) | payer OTHER ==
--- NOTE | 2017-08-31 15:50 | PDOC ---
Rapid Medical Evaluation Time Seen by Provider: 08/31/17 15:48 Medical Evaluation: Allergies Allergy/AdvReac Type Severity Reaction Status Date / Time codeine [Codeine] Allergy Mild itchiness Verified 08/31/17 15:48 morphine Allergy Verified 08/31/17 15:48 08/31/17 15:48 I have performed a brief in-person evaluation of this patient. The patient presents with a chief complaint of: chest pain x 1 week Pertinent physical exam findings: denies cp or dyspnea at present. alert and comfortable I have ordered the following: ekg, cardiac labs The patient will proceed to the ED for further evaluation. Discharge Disposition - Diagnosis Chest pain Qualifiers: Chest pain type: unspecified Qualified Code(s): R07.9 - Chest pain, unspecified - Referrals - Patient Instructions - Post Discharge Activity
[2017-08-31 15:53] VITALS: PULSE 60; BMI 36.6
[2017-08-31 16:19] LABS: BASOPHIL 0.8 % (0-2.0); EOSINOPHIL 0.5 % (0-4.5); MCH 27.1 pg (25.7-33.7); MCHC 32.3 g/dl (32.0-36.0); MEAN CELL VOLUME 83.8 fl (80-96); NEUTROPHILS 47.5 % (42.8-82.8); PLATELET COUNT 291 K/MM3 (134-434); RDW 15.3 % (11.6-15.6)
--- NOTE | 2017-08-31 16:50 | PDOC ---
History of Present Illness - General History Source: Patient Exam Limitations: No Limitations <Alvaro Singhssica - Last Filed: 08/31/17 19:13> <LoydAngie Alexandra - Last Filed: 08/31/17 22:12> - General Chief Complaint: Chest Pain Stated Complaint: ABNORMAL EKG (PCP SENT) Time Seen by Provider: 08/31/17 15:48 - History of Present Illness Initial Comments: 08/31/17 17:33 81 year old female, with significant past medical history of CAD s/p 2 stents and pacemaker (05/2017), HTN, HLD, who presents to the emergency room referred in by Dr. Venegas for cardiac enzymes complaining of 1 month of intermittent chest pain that became constant over the past week. At this time she reports diffuse anterior chest pain that radiates to the left back and feels achy and is "just there". The pain is not exacerbated by movement. She notes that this is similar to the pain she experienced in the past before her angioplasty in March. She denies SOB, or palpitations and wants to go home. She notes that she has been compliant with all of her medications. She notes that her last stress test was in 03/2017 prior to stenting and pacemaker. Denies SOB, leg swelling. Denies fever, chills, nausea, vomiting. Denies abdominal pain. Allergies: codeine, morphine PCP: Dr. Rankin Topology Professor: Dr. Venegas (Barb Singh) Past History <aBrb Singh - Last Filed: 08/31/17 19:13> - Past Medical History Anemia: No Asthma: No Cancer: Yes (CHRONIC LEUKEMIA) Cardiac Disorders: Yes (CAD,STENTS) CVA: No COPD: No CHF: No DVT: No Dementia: No Diabetes: No GI Disorders: Yes (REFLUX,ESOPHAGITIS;GASTRIC ULCERS; DIVERTICULOSIS; H/H) Disorders: No HTN: Yes Hypercholesterolemia: Yes Liver Disease: No Seizures: No Thyroid Disease: No - Surgical History Abdominal Surgery: No Appendectomy: No Cardiac Surgery: Yes (STENTS,ppm) Cholecystectomy: Yes Lung Surgery: No Neurologic Surgery: No Orthopedic Surgery: Yes (LEFT TOTAL KNEE REPLACEMENT X2) - Immunization History Immunization Up to Date: Yes - Suicide/Smoking/Psychosocial Hx Smoking Status: No Smoking History: Never smoked Have you smoked in the past 12 months: No Number of Cigarettes Smoked Daily: 0 If you are a former smoker, when did you quit?: 1997 Information on smoking cessation initiated: No Hx Alcohol Use: No Drug/Substance Use Hx: No Substance Use Type: None Hx Substance Use Treatment: No <Angie Harp - Last Filed: 08/31/17 22:12> - Past Medical History Allergies/Adverse Reactions: Allergies Allergy/AdvReac Type Severity Reaction Status Date / Time codeine [Codeine] Allergy Mild itchiness Verified 08/31/17 15:48 morphine Allergy Verified 08/31/17 15:48 Home Medications: Ambulatory Orders Amlodipine Besylate/Benazepril [Lotrel 5-10 mg Capsule] 1 each PO DAILY Aspirin [ASA -] 81 mg PO BID 12/02/13 Isosorbide Mononitrate [Imdur] 120 mg PO DAILY 12/02/13 Atorvastatin Ca [Lipitor] 20 mg PO HS 04/15/15 Sertraline HCl [Zoloft -] 25 mg PO DAILY 04/15/15 Guar Gum [Benefiber] 1 each PO BID #0 packet 09/28/15 Acetaminophen [Tylenol -] 500 mg PO Q4H PRN #100 tablet 02/02/17 Docusate Sodium [Colace -] 2 tab PO DAILY #30 capsule 02/02/17 Clopidogrel Bisulfate [Plavix -] 75 mg PO DAILY 08/31/17 Cardiac Specific PMH - Complaint Specific PMHX Pacemaker: No <Angie Harp - Last Filed: 08/31/17 22:12> Review of Systems - Review of Systems Able to Perform ROS?: Yes <Barb Singh - Last Filed: 08/31/17 19:13> <Angie Harp - Last Filed: 08/31/17 22:12> - Review of Systems Comments:: 08/31/17 17:33 CONSTITUTIONAL: Absent: fever, no chills, no fatigue EYES: Absent: visual changes ENT: Absent: ear pain, no sore throat CARDIOVASCULAR: Present: chest pain that radiates to the left back Absent: no palpitations RESPIRATORY: Absent: cough, no SOB GI: Absent: abdominal pain, no nausea, no vomiting, no constipation, no diarrhea GENITOURINARY: Absent: dysuria, no frequency, no hematuria MUSCULOSKELETAL: Absent: no arthralgia, no myalgia SKIN: Absent: rash NEURO: Absent: headache 08/31/17 18:15 (Barb Singh) *Physical Exam <Barb Singh - Last Filed: 08/31/17 19:13> <Angie Harp - Last Filed: 08/31/17 22:12> - Vital Signs Last Vital Signs Temp Pulse Resp BP Pulse Ox 98.2 F 60 17 141/73 97 08/31/17 18:50 08/31/17 20:41 08/31/17 20:41 08/31/17 20:41 08/31/17 20:41 - Physical Exam Comments: 08/31/17 17:33 GENERAL: Well-appearing, obese. No apparent distress. HEENT: Normocephalic, atraumatic. PERRL, EOM intact. CARDIOVASCULAR: Normal S1, S2. Regular rate and rhythm. PULMONARY: Clear to auscultation bilaterally. ABDOMEN: Protuberant belly that is soft, non-distended, non-tender. EXTREMITIES: No pitting edema. Normal ROM in all four extremities. No gross deformities. SKIN: Warm, dry. No rash NEUROLOGICAL: No focal neurological deficits. (Barb Singh) Heart Score/ECG Review - History History: Slightly suspicious - Electrocardiogram EKG: Non specific repolarization disturbance - Age Age: >/= 65 - Risk Factors Risk Factors Heart Score: Yes Hx Hypercholesterolemia, Yes Hx Hypertension, Yes Hx Obesity Based on the list above the patient has:: >/=3 risk factors or Hx atherosclerotic disease - Troponin Troponin: </= normal limit - Score Heart Score - Total: 5 - ECG Intrepretation Rhythm: Regular Rhythm (pt being transferred to [facility] to DR GARCIA) <Angie Harp - Last Filed: 08/31/17 22:12> ED Treatment Course - LABORATORY CBC & Chemistry Diagram: 08/31/17 16:00 08/31/17 16:00 <FranciscoBarb - Last Filed: 08/31/17 19:13> - LABORATORY CBC & Chemistry Diagram: 08/31/17 16:00 08/31/17 16:00 <Angie Harp - Last Filed: 08/31/17 22:12> - ADDITIONAL ORDERS Additional order review: Laboratory Results 08/31/17 08/31/17 08/31/17 17:00 16:00 16:00 PT with INR 10.60 Cancelled INR 0.94 Cancelled PTT (Actin FS) 28.0 Cancelled Sodium 140 Potassium 4.5 Chloride 108 H Carbon Dioxide 23 Anion Gap 9 BUN 14 D Creatinine 0.7 D Creat Clearance w eGFR > 60 Random Glucose 94 Calcium 8.7 Total Bilirubin 0.7 D AST 19 ALT 20 Alkaline Phosphatase 100 Creatine Kinase 69 Troponin I < 0.02 Total Protein 7.0 Albumin 4.0 08/31/17 16:00 RBC 5.30 H MCV 83.8 MCHC 32.3 RDW 15.3 D MPV 8.0 Neutrophils % 47.5 Lymphocytes % 44.6 H Monocytes % 6.6 Eosinophils % 0.5 Basophils % 0.8 D - Medications Given in the ED: ED Medications Discontinued Medications Generic Name Dose Route Start Last Admin Trade Name Freq PRN Reason Stop Dose Admin Aspirin 162 mg 08/31/17 20:29 08/31/17 20:36 Asa - PO 08/31/17 20:30 162 mg ONCE ONE Administration Atorvastatin Calcium 80 mg 08/31/17 20:28 08/31/17 20:36 Lipitor - PO 08/31/17 20:29 80 mg ONCE ONE Administration Heparin Sodium (Porcine) 5,000 unit 08/31/17 19:23 08/31/17 19:46 Heparin - IVPUSH 5,000 unit PRN PRN Administration Heparin Heparin Sodium/Dextrose 25,000 units in 500 mls @ 20 mls/hr 08/31/17 19:30 19:46 Heparin Infusion - IVPB 1,000 units/hr TITR WHIT 20 mls/hr Protocol Administration 1,000 UNITS/HR Medical Decision Making <Barb Singh - Last Filed: 08/31/17 19:13> <Angie Harp - Last Filed: 08/31/17 22:12> - Medical Decision Making 08/31/17 20:04 The patient 1-year-old female with a known history of coronary artery disease was sent by her glass embosser because of ongoing pain and changing EKGs. She did have 2 cardiac stents placed at [place] this summer for a blockage in her diagonal and her LAD Dr. Ilir Venegas came to the emergency department and evaluated the patient, and he called Dr. Booth at [facility] cardiology to arrange for transfer. The plan is for the patient to have a cardiac catheter at ([facility]. Patient has past medical history of hypertension, hyperlipidemia, coronary artery disease ekg 60 bpm wirh LVH and st and t wave abnormalities Patient received heparin 5000 units IV bolus, then a heparin infusion at thousand units an hour, Lipitor 80 mg, additional aspirin 162 mg. Patient did take her Plavix 75 mg prior to arrival and also took 160 mg of aspirin earlier today 08/31/17 22:10 (Angie Harp) *DC/Admit/Observation/Transfer <Barb Singh - Last Filed: 08/31/17 19:13> <Angie Harp - Last Filed: 08/31/17 22:12> Diagnosis at time of Disposition: Chest pain Qualifiers: Chest pain type: unspecified Qualified Code(s): R07.9 - Chest pain, unspecified - Referrals Referrals: Cecil Calero MD [Primary Care Provider] - - Attestations Scribe Attestion: 08/31/17 17:34 Documentation prepared by REGINE Mullins, acting as medical dosimetrist for Angie Harp MD. (Barb Singh)
[2017-08-31 17:06] LABS: ANION GAP 9 (8-16); CALCIUM 8.7 mg/dL (8.5-10.1); CO2 23 mmol/L (21-32); CREATININE 0.7 mg/dL (0.55-1.02); GLUCOSE,RANDOM 94 mg/dL (74-106); SGOT/AST 19 U/L (15-37); SGPT/ALT 20 U/L (12-78)
[2017-08-31 17:10] LABS: ALK PHOS 100 U/L (45-117); BILIRUBIN,TOTAL 0.7 mg/dL (0.2-1.0); CPK 69 IU/L (26-192); TROPONIN I < 0.02 ng/ml (0.00-0.05)
[2017-08-31 18:51] VITALS: TEMP 98.2
[2017-08-31 18:55] LABS: INR 0.94 (0.82-1.09); PROTHROMBIN TIME (PATIENT) 10.6 SEC (9.98-11.88)
[2017-08-31] MEDS ORDERED: HEPARIN NA (PORCINE) 5,000 UNITS/ML 1ML VIAL IVPUSH PRN (19:23)
[2017-08-31] MEDS ORDERED: HEPARIN INFUSION - 25,000 UNITS/500 ML INFUS.BAG IVPB SCH (19:30)
[2017-08-31] MEDS ORDERED: HEPARIN INFUSION - 25,000 UNITS/500 ML INFUS.BAG IVPB ONE (19:34)
[2017-08-31] MEDS ORDERED: HEPARIN NA (PORCINE) 5,000 UNITS/ML 1ML VIAL ONE (19:34)
[2017-08-31] MEDS ORDERED: ATORVASTATIN CA 80 MG TABLET (FP) PO ONE ×2 (20:28→20:30)
[2017-08-31] MEDS ORDERED: ASPIRIN 81 MG CHEWABLE TABLETS PO ONE (20:29)
[2017-08-31] MEDS ORDERED: ATORVASTATIN CA 80 MG TABLET (FP) ONE (20:33)
[2017-08-31] MEDS ORDERED: ASPIRIN 81 MG CHEWABLE TABLETS ONE (20:33)
[2017-08-31 20:41] VITALS: BP 141/73
--- NOTE | 2017-09-01 18:10 | EKG ---
Test Reason : Blood Pressure : / mmHG Vent. Rate : 060 BPM Atrial Rate : 060 BPM P-R Int : 244 ms QRS Dur : 086 ms QT Int : 438 ms P-R-T Axes : 000 -42 -40 degrees QTc Int : 438 ms POOR DATA QUALITY, INTERPRETATION MAY BE ADVERSELY AFFECTED Atrial-paced rhythm with prolonged AV conduction LEFT AXIS DEVIATION MINIMAL VOLTAGE CRITERIA FOR LVH, MAY BE NORMAL VARIANT ABNORMAL ECG WHEN COMPARED WITH ECG OF 15-MAY-2017 15:05, ELECTRONIC ATRIAL PACEMAKER HAS REPLACED JUNCTIONAL RHYTHM T WAVE INVERSION MORE EVIDENT IN LATERAL LEADS REPEAT EKG IF CLINICALLY INDICATED Confirmed by ELEANOR PATEL MD ([id number]) on 09/01/2017 6:10:16 PM Referred By: Confirmed By:ELEANOR PATEL MD
== END 2017-08-31 21:22 | disposition home or self-care (01) ==
LOC: JER 15:35
PROC: 3E033GC Introduction of Other Therapeutic Substance into Peripheral Vein, Percutaneous Approach (ICD-10-PCS; principal; 2017-08-31)
DX: R07.9 Chest pain, unspecified (principal); I25.10 Atherosclerotic heart disease of native coronary artery without angina pectoris; I10 Essential (primary) hypertension; Z95.5 Presence of coronary angioplasty implant and graft; E78.00 Pure hypercholesterolemia, unspecified; C95.10 Chronic leukemia of unspecified cell type not having achieved remission; Z87.19 Personal history of other diseases of the digestive system; Z95.0 Presence of cardiac pacemaker
CPT/HCPCS: 36415; 71020-TC; 80053; 82550; 84484; 85025; 85610; 85730; 93005; 93010; 96374; 99284-25; J1644

== ENCOUNTER 2022-12-26 13:46 | Inpatient (IN) | payer OTHER, MEDICARE ==
[2022-12-26 15:23] LABS: HEMATOCRIT 37.2 % (32.4-45.2); HEMOGLOBIN 12.2 GM/dL (10.7-15.3); MCH 27.2 pg (25.7-33.7); MCHC 32.8 g/dl (32.0-36.0); MEAN PLT VOLUME 8.2 fl (7.5-11.1); PLATELET COUNT 337 10^3/uL (134-434); RBC 4.48 M/mm3 (3.60-5.2); RDW 14.9 % (11.6-15.6); WHITE BLOOD COUNT 15.2 K/mm3 (4.0-10.0)
[2022-12-26 15:53] LABS: CALCIUM 9.4 mg/dL (8.5-10.1)
[2022-12-26 15:54] LABS: ALBUMIN 3.6 g/dl (3.4-5.0); BLOOD UREA NITROGEN 14.7 mg/dL (7-18); MAGNESIUM 2.1 mg/dL (1.8-2.4)
[2022-12-26 15:57] LABS: CREATININE 0.6 mg/dL (0.55-1.3); PHOSPHOROUS 2.9 mg/dL (2.5-4.9)
[2022-12-26 15:58] LABS: BILIRUBIN,TOTAL 0.6 mg/dL (0.2-1); TOT PROT 6.2 g/dl (6.4-8.2)
[2022-12-26 16:02] LABS: N-TERMINAL BNP 441.1 pg/ml (5-450)
[2022-12-26] MEDS ORDERED: SODIUM CHLORIDE 500 ML IV STA (17:10)
[2022-12-26 20:39] LABS: EPI CELLS 26 /uL (0-25.1); HYALINE CASTS 3 /uL (0-3.1); PH,URINE 5.5 (5.0-8.0); URINE APPEARANCE CLEAR; URINE BACTERIA 43 /uL (0-1359); URINE BILIRUBIN NEGATIVE (NEGATIVE); URINE COLOR YELLOW; URINE GLUCOSE (UA) NEGATIVE (NEGATIVE); URINE KETONE 2+ (NEGATIVE); URINE LEUK ESTERASE 1+ (NEGATIVE); URINE NITRITE NEGATIVE (NEGATIVE); URINE PROTEIN TRACE (NEGATIVE); URINE RBC 24 /uL (0-23.9); URINE UROBILINOGEN 0.2 mg/dL (0.2-1.0); URINE WBC 123 /uL (0-25.8)
[2022-12-26] MEDS ORDERED: KETOROLAC TROMETHAMINE 15 MG/ML VIAL IVPUSH ONE (21:01)
[2022-12-26] MEDS: ACETAMINOPHEN 1000 MG/100 ML BAG IVPB SCH (21:38)
[2022-12-26] MEDS: CEFTRIAXONE 1 GM in DEXTROSE 5%-WATER - 50 ML IVPB SCH (21:38)
[2022-12-26] MEDS ORDERED: ACETAMINOPHEN INJECTION 100 ML IVPB ONE (21:40)
[2022-12-26] MEDS ORDERED: cefTRIAXone SODIUM 1 GM VIAL ONE (21:41)
[2022-12-26] MEDS ORDERED: KETOROLAC TROMETHAMINE 15 MG/ML VIAL ONE (21:41)
[2022-12-26] MEDS ORDERED: ALPRAZolam 0.25 MG TABLET PO PRN (23:23)
[2022-12-26] MEDS: LIDOCAINE PATCH REMOVAL MC SCH (23:41)
[2022-12-26] MEDS ORDERED: FAMOTIDINE 40 MG TABLET PO PRN (23:47)
[2022-12-27 01:37] VITALS: BMI 33.5
[2022-12-27] MEDS: ACETAMINOPHEN 1000 MG/100 ML BAG IVPB SCH ×3 (02:29→16:05)
[2022-12-27] MEDS ORDERED: ASPIRIN 81 MG CHEWABLE TABLETS PO ONE (07:13)
[2022-12-27] MEDS: ISOSORBIDE MONONITRATE 60 MG TAB.SR.24H (FP) PO SCH (09:42)
[2022-12-27] MEDS: LIDOCAINE 5% TOPICAL PATCH TP SCH (09:43)
[2022-12-27] MEDS: CEFTRIAXONE 1 GM in DEXTROSE 5%-WATER - 50 ML IVPB SCH (09:43)
[2022-12-27] MEDS: LISINOPRIL 20 MG TABLET PO SCH (09:43)
[2022-12-27] MEDS: amLODIPine BESYLATE 5 MG TABLET (FP) PO SCH (09:43)
[2022-12-27] MEDS: SERTRALINE HCL 50 MG TABLET (FP) PO SCH (09:43)
[2022-12-27] MEDS: ASPIRIN 81 MG CHEWABLE TABLETS PO SCH (09:43)
[2022-12-27] MEDS ORDERED: ENOXAPARIN NA (PORCINE) 40 MG/0.4 ML DISP.SYRIN SQ SCH (10:00)
[2022-12-27] MEDS ORDERED: ENOXAPARIN NA (PORCINE) 60 MG/0.6 ML DISP.SYRIN SQ SCH (10:00)
[2022-12-27] MEDS ORDERED: PATIENT'S OWN MEDICATION (NON-FORMULARY) (Amlodipine Besylate/Benazepril [Amlodipine-Benaz PO SCH (10:00)
[2022-12-27 11:31] LABS: BASO % 0.2 % (0-2.0); EOS % 0.6 % (0-4.5); HEMOGLOBIN 11.5 GM/dL (10.7-15.3); LYMPH % 43.6 % (8-40); MCH 27.1 pg (25.7-33.7); MEAN CELL VOLUME 82.1 fl (80-96); MEAN PLT VOLUME 7.2 fl (7.5-11.1); MONO % 6.8 % (3.8-10.2); NEUT % 48.8 % (42.8-82.8); PLATELET COUNT 321 10^3/uL (134-434); RBC 4.27 M/mm3 (3.60-5.2); WHITE BLOOD COUNT 10.7 K/mm3 (4.0-10.0)
[2022-12-27 11:48] LABS: ALBUMIN 3.3 g/dl (3.4-5.0); CALCIUM 8.8 mg/dL (8.5-10.1); MAGNESIUM 2.1 mg/dL (1.8-2.4)
[2022-12-27 11:49] LABS: BLOOD UREA NITROGEN 13.6 mg/dL (7-18)
[2022-12-27 11:51] LABS: CREATININE 0.5 mg/dL (0.55-1.3)
[2022-12-27 11:52] LABS: PHOSPHOROUS 4.4 mg/dL (2.5-4.9)
[2022-12-27 11:53] LABS: BILIRUBIN,TOTAL 0.7 mg/dL (0.2-1); TOT PROT 5.9 g/dl (6.4-8.2)
[2022-12-27] MEDS ORDERED: POLYETHYLENE GLYCOL (HEALTHYLAX) 3350 17 GM PACKET PO ONE (17:00)
[2022-12-27] MEDS: ATORVASTATIN CA 20 MG TABLET (FP) PO SCH (21:27)
[2022-12-27] MEDS: LIDOCAINE PATCH REMOVAL MC SCH (21:27)
[2022-12-27] MEDS ORDERED: ATORVASTATIN CA 80 MG TABLET (FP) PO SCH (22:00)
[2022-12-27] MEDS ORDERED: ATORVASTATIN CA 20 MG TABLET (FP) PO SCH (22:00)
[2022-12-27 23:09] VITALS: RESP 20
[2022-12-28 08:15] LABS: HEMATOCRIT 34.6 % (32.4-45.2); HEMOGLOBIN 11.6 GM/dL (10.7-15.3); MCH 27.3 pg (25.7-33.7); MCHC 33.4 g/dl (32.0-36.0); MEAN CELL VOLUME 81.7 fl (80-96); PLATELET COUNT 307 10^3/uL (134-434); RBC 4.23 M/mm3 (3.60-5.2); WHITE BLOOD COUNT 13.5 K/mm3 (4.0-10.0)
[2022-12-28 08:47] LABS: PHOSPHOROUS 3.5 mg/dL (2.5-4.9)
[2022-12-28 08:48] LABS: BLOOD UREA NITROGEN 11.4 mg/dL (7-18); CALCIUM 8.5 mg/dL (8.5-10.1); MAGNESIUM 2.1 mg/dL (1.8-2.4)
[2022-12-28 08:51] LABS: CREATININE 0.5 mg/dL (0.55-1.3)
[2022-12-28] MEDS: ISOSORBIDE MONONITRATE 60 MG TAB.SR.24H (FP) PO SCH (09:17)
[2022-12-28] MEDS: ASPIRIN 81 MG CHEWABLE TABLETS PO SCH (09:18)
[2022-12-28] MEDS: ENOXAPARIN NA (PORCINE) 40 MG/0.4 ML DISP.SYRIN SQ SCH (09:18)
[2022-12-28] MEDS: LISINOPRIL 20 MG TABLET PO SCH (09:18)
[2022-12-28] MEDS: LIDOCAINE 5% TOPICAL PATCH TP SCH (09:18)
[2022-12-28] MEDS: amLODIPine BESYLATE 5 MG TABLET (FP) PO SCH (09:18)
[2022-12-28] MEDS: SERTRALINE HCL 50 MG TABLET (FP) PO SCH (09:18)
[2022-12-28] MEDS ORDERED: DOCUSATE SODIUM 100 MG CAPSULE (FP) PO PRN (12:58)
[2022-12-28] MEDS ORDERED: BISACODYL 10 MG SUPP.RECT PR ONE (19:05)
[2022-12-28] MEDS: LIDOCAINE PATCH REMOVAL MC SCH (22:27)
[2022-12-28] MEDS: ATORVASTATIN CA 20 MG TABLET (FP) PO SCH (22:27)
[2022-12-29 07:02] LABS: HEMATOCRIT 34.5 % (32.4-45.2); HEMOGLOBIN 11.6 GM/dL (10.7-15.3); MCH 27.4 pg (25.7-33.7); MCHC 33.7 g/dl (32.0-36.0); MEAN CELL VOLUME 81.3 fl (80-96); MEAN PLT VOLUME 7.6 fl (7.5-11.1); PLATELET COUNT 291 10^3/uL (134-434); RBC 4.24 M/mm3 (3.60-5.2); RDW 14.7 % (11.6-15.6); WHITE BLOOD COUNT 14.7 K/mm3 (4.0-10.0)
[2022-12-29 07:30] LABS: CALCIUM 8.9 mg/dL (8.5-10.1)
[2022-12-29 07:31] LABS: ALBUMIN 3.1 g/dl (3.4-5.0); BLOOD UREA NITROGEN 9.6 mg/dL (7-18)
[2022-12-29 07:34] LABS: CREATININE 0.4 mg/dL (0.55-1.3); PHOSPHOROUS 3.3 mg/dL (2.5-4.9)
[2022-12-29 07:35] LABS: BILIRUBIN,TOTAL 0.8 mg/dL (0.2-1); TOT PROT 5.8 g/dl (6.4-8.2)
[2022-12-29] MEDS: ASPIRIN 81 MG CHEWABLE TABLETS PO SCH (09:07)
[2022-12-29] MEDS: LIDOCAINE 5% TOPICAL PATCH TP SCH (09:07)
[2022-12-29] MEDS: SERTRALINE HCL 50 MG TABLET (FP) PO SCH (09:07)
[2022-12-29] MEDS: ISOSORBIDE MONONITRATE 60 MG TAB.SR.24H (FP) PO SCH (09:07)
[2022-12-29] MEDS: amLODIPine BESYLATE 5 MG TABLET (FP) PO SCH (09:07)
[2022-12-29] MEDS: ENOXAPARIN NA (PORCINE) 40 MG/0.4 ML DISP.SYRIN SQ SCH (09:07)
[2022-12-29] MEDS: LISINOPRIL 20 MG TABLET PO SCH (09:07)
[2022-12-29] MEDS ORDERED: FAMOTIDINE 40 MG TABLET PO PRN (12:21)
[2022-12-29] MEDS ORDERED: ALPRAZolam 0.25 MG TABLET PO PRN (12:21)
[2022-12-29] MEDS: ATORVASTATIN CA 20 MG TABLET (FP) PO SCH (21:25)
[2022-12-29] MEDS ORDERED: LIDOCAINE PATCH REMOVAL MC SCH (22:00)
[2022-12-30 08:01] LABS: CALCIUM 8.6 mg/dL (8.5-10.1)
[2022-12-30 08:02] LABS: BLOOD UREA NITROGEN 9.8 mg/dL (7-18)
[2022-12-30 08:05] LABS: CREATININE 0.4 mg/dL (0.55-1.3)
[2022-12-30] MEDS: ENOXAPARIN NA (PORCINE) 40 MG/0.4 ML DISP.SYRIN SQ SCH (09:35)
[2022-12-30] MEDS ORDERED: amLODIPine BESYLATE 5 MG TABLET (FP) PO SCH (10:00)
[2022-12-30] MEDS ORDERED: SERTRALINE HCL 50 MG TABLET (FP) PO SCH (10:00)
[2022-12-30] MEDS ORDERED: LISINOPRIL 20 MG TABLET PO SCH (10:00)
[2022-12-30] MEDS ORDERED: ISOSORBIDE MONONITRATE 60 MG TAB.SR.24H (FP) PO SCH (10:00)
[2022-12-30] MEDS ORDERED: ASPIRIN 81 MG CHEWABLE TABLETS PO SCH (10:00)
[2022-12-30] MEDS ORDERED: LIDOCAINE 5% TOPICAL PATCH TP SCH (10:00)
[2022-12-30 10:25] LABS: HEMATOCRIT 32.8 % (32.4-45.2); MCH 27.5 pg (25.7-33.7); MCHC 33.6 g/dl (32.0-36.0); MEAN CELL VOLUME 81.8 fl (80-96); MEAN PLT VOLUME 7.9 fl (7.5-11.1); PLATELET COUNT 269 10^3/uL (134-434); RDW 14.2 % (11.6-15.6); WHITE BLOOD COUNT 12.3 K/mm3 (4.0-10.0)
[2022-12-30] MEDS ORDERED: CEFTRIAXONE 1 GM in DEXTROSE 5%-WATER - 50 ML IVPB ONE (13:11)
[2022-12-30 19:03] VITALS: BP 142/92; PULSE 78; TEMP 99
[2022-12-30] MEDS ORDERED: LACTOBACILLUS ACIDOPHILUS 1 TABLET PO SCH (22:00)
[2022-12-31] MEDS ORDERED: CEFUROXIME AXETIL 500 MG TABLET PO ONE (08:00)
== END 2022-12-30 19:35 | DRG 551 ==
LOC: JER 13:46 → JERBED 16:37 → J8W 23:51 → J4W 12-27 06:15
PROVIDERS: ADMIT Internal Medicine; ATTEND Internal Medicine
DX: S32.19XA Other fracture of sacrum, initial encounter for closed fracture (principal); I63.89 Other cerebral infarction; I24.8 Other forms of acute ischemic heart disease; N39.0 Urinary tract infection, site not specified; I50.32 Chronic diastolic (congestive) heart failure; I11.0 Hypertensive heart disease with heart failure; N31.9 Neuromuscular dysfunction of bladder, unspecified; I25.10 Atherosclerotic heart disease of native coronary artery without angina pectoris; E78.5 Hyperlipidemia, unspecified; I44.0 Atrioventricular block, first degree; F41.8 Other specified anxiety disorders; R35.89 Other polyuria; N39.490 Overflow incontinence; K64.3 Fourth degree hemorrhoids; K21.9 Gastro-esophageal reflux disease without esophagitis; K57.90 Diverticulosis of intestine, part unspecified, without perforation or abscess without bleeding; I35.0 Nonrheumatic aortic (valve) stenosis; Z95.0 Presence of cardiac pacemaker; Z95.5 Presence of coronary angioplasty implant and graft; W06.XXXA Fall from bed, initial encounter; Y92.092 Bedroom in other non-institutional residence as the place of occurrence of the external cause
CPT/HCPCS: 0241U-QW; 36415; 70450-TC; 71045-TC-FY; 72125-TC; 72131-TC; 72170-TC-FY; 80048; 80053; 80061; 81003; 82550; 83036; 83615; 83721; 83735; 83880; 84100; 84443; 84484; 85025; 85027; 87086; 93005; 93010; 93880-TC; 97116-GP; 97163-GP; 99285-25; C9803-CS; U0003; U0005